=== PATIENT | female | born 1935 | race Caucasian/White ===

== ENCOUNTER 2016-09-12 06:08 | Emergency (ER) | payer MEDICARE, BC ==
--- NOTE | ~2016-09-12 | ER ---
[facility]GE[facility] 81 Y [address] ROOM: [place] [address] LOCATION: [facility] ADMIT DATE: 09/12/2016 ER/Outpatient Report DISCHARGE DATE: 09/12/2016 FAMILY PHYSICIAN: Danny Mayorga MD ATTENDING PHYSICIAN: Ariela Jeff TIME OF ARRIVAL: 0608. TIME SEEN: 06. IDENTIFICATION: An 81-year-old female. CHIEF COMPLAINT: Difficulty urinating. HISTORY OF PRESENT ILLNESS: The patient has a history of kidney stones and today she has been unable to pass her urine. She has been slow to urinate for the past 2 weeks. Last went around 11:30 p.m. last night. No nausea or vomiting. No fever or chills. No other problems or concerns. ALLERGIES: SULFA. CURRENT MEDICATIONS: Nifedipine 60 mg daily. MEDICAL PROBLEMS: Hypertension and CVA two years ago. PAST SURGICAL HISTORY: Cataract surgery, appendectomy, and cholecystectomy. SOCIAL HISTORY: The patient [place] here [place] town. She lives with her son. Tobacco use, denies. Alcohol use, denies. Drug use, denies. REVIEW OF SYSTEMS: All systems reviewed and negative other than what is noted in the HPI. PHYSICAL EXAMINATION: Weight 78.8 kg, blood pressure 134/82, pulse 98, respirations 20, temperature PATIENT'S NAME: SALINAS, [facility] AGE: 81 Y [address] ROOM: [place] [address] LOCATION: [facility] ADMIT DATE: 09/12/2016 ER/Outpatient Report DISCHARGE DATE: 09/12/2016 FAMILY PHYSICIAN: Danny Mayorga MD ATTENDING PHYSICIAN: Ariela Jeff 96.4, sats 93%. GENERAL: An 81-year-old female, in no acute distress. HEENT: Head: Normocephalic, atraumatic. Ears: TMs translucent in both ears. Eyes: Pupils equal and reactive to light and accommodation. Extraocular movements intact. Nose: Mucosa pink. No lesions or drainage. Mouth: No lesions. Pharynx benign. NECK: Supple. No lymphadenopathy. LUNGS: Clear to auscultation. HEART: Regular rate and rhythm. ABDOMEN: Soft, nondistended. She has suprapubic tenderness. SKIN: [place], warm, and dry. No lesions or rashes noted. EXTREMITIES: No lower extremity edema. DIAGNOSTIC DATA: The patient's bladder scan showed [address] scan of the abdomen and pelvis without IV contrast, mild urinary bladder wall thickening suggesting acute or chronic cystitis. Small stones within urinary bladder, the largest measuring 6 mm. Sodium 144, potassium 3.4, chloride 107, CO2 of 28, BUN 18, creatinine 1.3. Blood sugar 162. Liver enzymes normal. UA 0-2 white cells. Hemoglobin 13.5, hematocrit 39.4, platelets 326, white count 6.2 with a normal differential. The patient had a straight cath here for urine and she has been voiding normally since then. IMPRESSION: 1. Urinary retention. 2. Bladder stones. 3. Cystitis. PLAN: Fluids and rest. Cipro 250 b.i.d., strain urine. Follow up with Dr. Mayorga or Urology in 1-2 days. Follow up sooner if any problems or concerns. Follow up immediately if unable to pass her urine. The patient understands and agrees, and all questions have been answered. MD NATHAN MCADAMS/lalitha /[id number] d: 09/12/16 1522 t: 09/12/16 1559, OUTPATIENT REPORT
[~2016-09-12 06:08] MED LIST: ASPIRIN325 MG PO; CIPRO250 M1 PO; FIORICET 50-301 EACH PO; MOTRIN400 MG; PROCARDIA XL60 MG PO; PROTONIX40 MG PO; THERAGRAN-M1 TAB PO; TYLENOL325 MG PO; VITAFUSION PO; ZOCOR40 MG PO; ZOLOFT25 M1 PO
[2016-09-12 06:48] LABS: BILIRUBIN URINE NEGATIVE (NEGATIVE); BLOOD URINE NEGATIVE /UL (NEGATIVE); COLOR URINE STRAW (YELLOW); GLUCOSE URINE NEGATIVE (NEGATIVE); KETONE URINE NEGATIVE (NEGATIVE); LEUKOCYTES URINE 25 /UL (NEGATIVE); NITRITE URINE NEGATIVE (NEGATIVE); PROTEIN URINE NEGATIVE (NEGATIVE); TURBIDITY URINE 1+ (CLEAR); UROBILINOGEN URINE NORMAL (NORMAL)
[2016-09-12 06:54] LABS: EPITHELIAL URINE RARE #/HPF (NEGATIVE); RBC URINE NEGATIVE #/HPF (NEGATIVE); WBC URINE 0-2 #/HPF (NEGATIVE)
[2016-09-12 06:55] LABS: BASOPHIL # 0.1 K/uL (0.0-0.2); BASOPHIL % 0.8 %; EOSINOPHIL # 0.2 K/uL (0.0-0.5); EOSINOPHIL % 2.6 %; HEMATOCRIT 39.4 % (30.0-46.0); HEMOGLOBIN 13.5 g/dL (10.0-15.0); IMMATURE GRANULOCYTE % 0.2 %; LYMPHOCYTE # 2.1 K/uL (0.8-4.0); LYMPHOCYTE % 34.3 %; MCH 31.5 pg (27.0-34.0); MCHC 34.3 gm/dL (32.0-36.5); MCV 92.1 fl (83.0-98.0); MONOCYTE # 0.4 K/uL (0.0-1.0); MONOCYTE % 5.9 %; MPV 8.8 fl (9.4-12.4); NEUTROPHIL # (ANC) 3.5 K/uL (1.8-7.8); NEUTROPHIL % 56.2 %; NRBC % 0 /100WBC (0-0.00); PLATELET COUNT 326 K/uL (150-450); RBC 4.28 M/uL (3.00-5.00); RDW-CV 13.2 % (11.9-14.6); WBC 6.2 K/uL (4.0-11.0)
[2016-09-12 06:55] LABS: AMORPHOUS URINE 1+ (NEGATIVE); BACTERIA URINE RARE (NEGATIVE)
[2016-09-12 07:10] LABS: ALBUMIN 3.5 gm/dL (3.5-5.0); ANION GAP 12.4 (10.0-19.0); CALCIUM 12.2 mg/dL (8.5-10.5); CREATININE 1.3 mg/dL (0.5-1.1); POTASSIUM 3.4 mMol/L (3.7-5.1); TOTAL BILIRUBIN 0.5 mg/dL (0.0-1.5); TOTAL PROTEIN 7.8 g/dL (6.0-8.4)
== END 2016-09-12 08:22 ==
LOC: GMED 06:08
PROVIDERS: Family Medicine
PROC: 0T9B70Z Drainage of Bladder with Drainage Device, Via Natural or Artificial Opening (ICD-10-PCS; principal; 2016-09-12)
PROC: 4A0D7LZ Measurement of Urinary Volume, Via Natural or Artificial Opening (ICD-10-PCS; 2016-09-12)
DX: N21.0 Calculus in bladder (principal); N30.90 Cystitis, unspecified without hematuria; I10 Essential (primary) hypertension; I63.9 Cerebral infarction, unspecified; Z90.49 Acquired absence of other specified parts of digestive tract; Z79.899 Other long term (current) drug therapy; Z88.2 Allergy status to sulfonamides